=== PATIENT | female | born 1940 | race Caucasian/White ===

== ENCOUNTER 2017-05-23 13:05 | Emergency (ER) | payer OTHER, MEDICARE ==
[~2017-05-23] VITALS: Ht 167.6 cm; Wt 86.8 kg
[~2017-05-23 13:05] MED LIST: COUMADIN,JANTOVE4 MG PO; EXFORGE 10/31 TABLET PO; EXFORGE 5/321 TABLET PO; Levothroid,Synthroid PO; Zebeta PO
[2017-05-23 13:32] VITALS: BP 191/100
[2017-05-23] MEDS ORDERED: ULTRAM50 MG PO (15:34)
== END 2017-05-23 16:07 | disposition home or self-care (01) ==
LOC: EME 13:05
DX: S93.402A Sprain of unspecified ligament of left ankle, initial encounter (principal); W01.0XXA Fall on same level from slipping, tripping and stumbling without subsequent striking against object, initial encounter
CPT/HCPCS: 73610; 99281; 99284